=== PATIENT | female | born 1970 | race American Indian/Alaskan Native ===

== ENCOUNTER 2019-08-25 12:16 | Outpatient (CLI) | payer BC ==
--- NOTE | 2019-08-25 12:52 | Ultrasound Report ---
EXAMINATION: Left Limited Breast Ultrasound, 08/25/2019 INDICATION: The patient reports a lump in the left axilla. COMPARISON: Bilateral mammogram, 11/28/2018 FINDINGS: Targeted ultrasound evaluation was performed of the area of interest. Sonographic evaluati on of the left axilla in the patient's area of palpable concern demonstrates no evidence of suspiciou s solid mass or shadowing. There is no focal abnormality to account for the patient's area of concern . IMPRESSION: Follow up recommendation: Clinical exam BI-RADS Category 1: Negative. No focal abnormality to account for the patient's area of palpable con cern in the left axilla. Therefore, clinical correlation is recommended. A normal or "negative" report should not preclude biopsy or follow-up of a clinically suspicious find ing. Signer Name: Disha Snow MD Signed: 08/25/2019 12:48 PM Workstation Name: [id number]
== END 2019-08-25 12:17 | disposition home or self-care (01) ==
LOC: SPVWC 12:16
PROVIDERS: ATTEND Surgery
DX: N63.32 Unspecified lump in axillary tail of the left breast (principal)